=== PATIENT | female | born 1995 ===

== ENCOUNTER 2024-08-03 14:41 | Inpatient (IN) ==
[2024-08-03] MEDS ORDERED: Lidocaine 1% VIAL 10 MG/ML 30 ML VIAL INJ PRN (15:39)
[2024-08-03] MEDS ORDERED: Nalbuphine 10 MG/ML 1 ML VIAL IM PRN (15:39)
[2024-08-03] MEDS ORDERED: Ondansetron 4 mg VIAL 2 MG/ML 2 ml VIAL IV PRN (15:44)
[2024-08-03 16:49] LABS: ABS Basophils 0.1 10^3/uL (0.0-0.1); ABS Lymphocytes 1.4 10^3/uL (1.0-4.8); ABS Monocytes 0.7 10^3/uL (0.0-0.9); ABS Neutrophils 10.8 10^3/uL (1.5-7.6); ABS Nucleated RBC 0.01 10^3/ul; Eosinophil % 0.3 %; Hematocrit 36.9 % (35-45); Hemoglobin 12.4 g/dL (11.5-14.3); Lymphocyte % 10.9 %; Mean Corpuscular Hemoglobin 29.7 pg (27-33); Mean Corpuscular Hgb Conc 33.7 g/dL (31-36); Mean Platelet Volume 8.3 fL (7.5-11.2); Nucleated Red Blood Cells % 0.1 %/100WBC (0.0-0.8); Platelet Count 200 10^3/uL (150-450); Red Blood Count 4.19 10^6/uL (3.63-4.92); Red Cell Distribution Width 14.2 % (12-17); White Blood Count 13.1 10^3/uL (3.8-11.8)
[2024-08-03] MEDS: Buffered Lidocaine 1% SYRIN 1 ml INTRADERM ONE (17:16)
[2024-08-03] MEDS: Oxytocin in LR 20,000 MILLI.UNIT/1,000 ML BAG IV SCH (17:16)
[2024-08-03] MEDS: Lactated Ringers 1000 ml BAG 1,000 ML IV SCH (17:16)
[2024-08-03 17:36] LABS: Urine Benzodiazepine Screen None Detected (None Detect); Urine Cannabinoids Screen None Detected (None Detect); Urine Opiates Screen None Detected (None Detect)
[2024-08-03 17:46] LABS: Albumin 3.4 g/dL (3.2-5.2); Albumin/Globulin Ratio 1.3 (1-3); Creatinine, Serum 0.59 mg/dL (0.51-0.95); Globulin 2.6 g/dL (2-4); Potassium 3.8 mmol/L (3.5-5.0); Total Bilirubin 0.3 mg/dL (0.2-1.0); eGFR CKD-EPI 125.8 (>60)
[2024-08-03] MEDS ORDERED: Phenylephrine 40 mcg/mL 10mL (400mcg) SYRINGE IV PUSH PRN ×2 (23:35)
[2024-08-03] MEDS ORDERED: Sodium Citrate/Citric Acid LIQ 15 ML UDC PO PRN (23:35)
[2024-08-04 00:10] LABS: Urine Appearance Extra Turbid; Urine Bilirubin Negative (Negative); Urine Blood 1+ (Negative); Urine Glucose Negative (Negative); Urine Ketones Negative (Negative); Urine Nitrite Negative (Negative); Urine Protein Negative (Negative); Urine Specific Gravity 1.014 (1.002-1.030); Urine Urobilinogen Negative (Negative); Urine pH 7.5 (5.0-8.0)
[2024-08-04 00:22] LABS: Urine Color Straw
[2024-08-04 00:23] LABS: Urine Bacteria Absent /HPF (Absent); Urine Red Blood Cell 1+(3-5/hpf) /HPF (0-Trace); Urine Squamous Epithelial Cell Present /HPF (Absent); Urine White Blood Cell Absent /HPF (0-Trace)
[2024-08-04] MEDS ORDERED: Glycerin ADULT 2.4 gm SUPP PR PRN (03:47)
[2024-08-04] MEDS ORDERED: Lactated Ringers 1000 ml BAG 1,000 ML IV SCH (04:00)
[2024-08-04] MEDS: Dibucaine 1% OINT 28.35 GM TUBE PR PRN (04:53)
[2024-08-04] MEDS: Witch Hazel PAD JAR TOPICAL PRN (04:53)
[2024-08-04] MEDS: RHO D Immune Globulin (HUMAN) 300 MCG = 1,500 I.U. INJ IM PRN (18:34)
[2024-08-04] MEDS: Lidocaine 1.5% EPI 1:200,000 30 ML SDV ONE (19:22)
[2024-08-04] MEDS: OBEPIDURAL (200 ML) 200 ML EPIDURAL ONE (19:22)
[2024-08-04] MEDS: Phenylephrine 40 mcg/mL 10mL (400mcg) SYRINGE ONE (19:22)
[2024-08-04] MEDS: Lactated Ringers 1000 ml BAG 1,000 ML IV ONE ×2 (19:22)
[2024-08-04] MEDS: Oxytocin in LR 20,000 MILLI.UNIT/1,000 ML BAG IV SCH (19:23)
[2024-08-04] MEDS: OBEPIDURAL (200 ML) 200 ML EPIDURAL SCH (19:23)
[2024-08-04] MEDS: Lactated Ringers 1000 ml BAG 1,000 ML IV SCH (19:23)
[2024-08-05 08:00] LABS: ABS Eosinophils 0.1 10^3/uL (0.0-0.5); ABS Lymphocytes 2.2 10^3/uL (1.0-4.8); ABS Monocytes 0.7 10^3/uL (0.0-0.9); ABS Neutrophils 7.9 10^3/uL (1.5-7.6); ABS Nucleated RBC 0.01 10^3/ul; Eosinophil % 1.3 %; Hemoglobin 12.5 g/dL (11.5-14.3); Lymphocyte % 19.8 %; Mean Corpuscular Hemoglobin 30.3 pg (27-33); Mean Corpuscular Hgb Conc 34.7 g/dL (31-36); Mean Corpuscular Volume 87.1 fL (80-97); Mean Platelet Volume 8.6 fL (7.5-11.2); Platelet Count 154 10^3/uL (150-450); Red Blood Count 4.14 10^6/uL (3.63-4.92); Red Cell Distribution Width 14.5 % (12-17); White Blood Count 10.9 10^3/uL (3.8-11.8)
[2024-08-05 08:37] VITALS: BP 121/72
== END 2024-08-05 12:07 | disposition home or self-care (01) | DRG 560 ==
LOC: MCHOBOUT 14:41 → MCHOB 15:31
PROVIDERS: ADMIT Advanced Practice Midwife; ATTEND Advanced Practice Midwife